=== PATIENT | male | born 1960 | race Caucasian/White ===

== ENCOUNTER 2022-02-02 15:27 | Emergency (ER) | payer BC ==
[2022-02-02 17:27] LABS: HEMOGLOBIN 16.1 gm/dl (14.0-17.5); RED BLOOD COUNT 5.18 M/UL (4.20-5.50)
[2022-02-02 17:51] LABS: BUN/CREATININE RATIO 17 (0-10)
== END 2022-02-02 21:44 | disposition home or self-care (01) ==
LOC: ER1 15:27
PROVIDERS: Physician Assistant
DX: R55 Syncope and collapse (principal); R51.9 Headache, unspecified; I10 Essential (primary) hypertension; E78.5 Hyperlipidemia, unspecified; Z90.89 Acquired absence of other organs
CPT/HCPCS: 70450; 71045; 80053; 82550; 82553; 84484; 85025; 93005; 99284